=== PATIENT | male | born 1975 | race Two or more races ===

== ENCOUNTER 2024-07-09 00:26 | Emergency (ER) | payer MEDICAID, SELFPAY ==
[2024-07-09 00:28] VITALS: BMI 22.9
[2024-07-09 00:49] VITALS: BP 139/93; PULSE 86; RESP 18; TEMP 37.2; O2SAT 95
--- NOTE | 2024-07-09 01:30 | XR_ITS ---
Examination: PA chest single view Technique: Upright PA chest single view Exam date and time: July 12, 2024 at 0136 hrs. Indications: Coughing beginning one month ago. Findings: Normal heart size. Lungs are clear. The osseous structures are intact Impression: No active disease
[2024-07-09 03:10] LABS: Alanine Aminotransferase 68 U/L (10-49); Albumin, Serum 4.6 gm/dL (3.5-5.0); Albumin/Globulin Ratio 1.6 (1.2-2.2); Alkaline Phosphatase 127 U/L (46-116); Anion Gap 9 (7-16); Aspartate Amino Transferase 26 U/L (0-34); BUN/Creatinine Ratio 17 Ratio (12-20); Bilirubin,Total 0.5 mg/dL (0.3-1.2); Blood Urea Nitrogen 15 mg/dL (9-23); Calcium 9.3 mg/dL (8.3-10.6); Calcium (Corrected) 9.3 mg/dL (8.5-10.1); Carbon Dioxide 28.4 mMol/L (20.0-31.0); Chloride 106 mMol/L (98-107); Creatinine (Component) 0.9 mg/dL (0.6-1.3); Globulin 2.8 gm/dL (2.3-3.5); Glucose 103 mg/dL (74-106); Osmolality,Calculated 285 (275-295); Potassium 4.1 mMol/L (3.4-5.1); Procalcitonin 0.07 ng/ml (0.0-0.49); Sodium 143 mMol/L (136-145); Total Protein 7.4 gm/dL (5.7-8.2); Troponin I < 0.002 ng/mL (0.0-0.045); eGFR > 60 See Note
[2024-07-09 03:18] LABS: Basophils # (Auto) 0.1 Thou/mm3 (0.0-0.2); Basophils % (Auto) 0 % (0-2.5); Eosinophils # (Auto) 0.2 Thou/mm3 (0.0-0.5); Eosinophils % (Auto) 1 % (0-10); Hematocrit 48.1 % (41.0-53.0); Immature Granulocytes % (Auto) 1 % (0-0); Immature Granulocytes Auto 0.12 Thou/mm3 (0.00-0.00); Lymphocytes # (Auto) 2.5 Thou/mm3 (1.0-4.8); Lymphocytes % (Auto) 20 % (10-50); Mean Corpuscular HGB Conc 33.3 g/dl (31.0-37.0); Mean Corpuscular Hemoglobin 26.6 pg (25.0-35.0); Mean Corpuscular Volume 80 fL (80-100); Monocytes % (Auto) 8 % (0-12); Neutrophils # (Auto) 8.8 Thou/mm3 (1.8-7.7); Neutrophils % (Auto) 70 % (37-80); Nucleated Red Blood Cell % 0 /100 WBC (0); Platelet Count 290 Thou/mm3 (140-440); RDW Standard Deviation 41.7 fL (35.1-43.9); Red Blood Count 6.01 Miln/mm3 (4.50-5.90); White Blood Count 12.7 Thou/mm3 (3.8-10.6)
[2024-07-09 04:06] LABS: D-Dimer < 250 ng/mL (<600)
[2024-07-09] MEDS: NAPROXEN 250 MG TABLET 500 MG PO (04:37)
--- NOTE | 2024-07-09 04:45 | EDNOTE_ITS ---
Upper Respiratory Inf. RME/HPI General Chief Complaint: Flu Like Symptoms Stated Complaint: COUGH Time Seen by Provider: 07/09/24 01:29 Arrival date/time: 07/09/24 00:26 49M with no significant PMH presents to ED with 1 month of cough w/o improvement from steroids and course of Augmentin. Symptoms got worse several days ago and patient also had some back pain when coughing and fevers/chills. Limitations: no limitations Review of Systems Review of Systems Systems Reviewed: All systems reviewed, normal except as documented Constitutional Constitutional: Reports system reviewed and no additional complaints, except as documented, Denies fever(s) and Denies headache(s) ENT Ears, Nose, Mouth, and Throat: Denies disequilibrium and Denies headache(s) Cardiovascular Cardiovascular: Reports system reviewed and no additional complaints, except as documented, Denies chest pain and Denies dyspnea Respiratory Respiratory: Reports system reviewed and no additional complaints, except as documented, Reports as per HPI, Reports cough and Denies dyspnea Gastrointestinal Gastrointestinal: Reports system reviewed and no additional complaints, except as documented, Denies abdominal pain, Denies nausea and Denies vomiting Musculoskeletal Musculoskeletal: Reports as per HPI and Reports back pain Neurologic Neurologic: Reports system reviewed and no additional complaints, except as documented, Denies confusion, Denies disequilibrium and Denies headache(s) Psychiatric Psychiatric: Denies confusion Past Medical History Social History SMOKING STATUS: Never smoker ED Exam General Limitations: Present no limitations General appearance: Present alert and in no apparent distress Head Head exam: Present atraumatic Eye Eye exam: Present normal appearance, PERRL and EOMI ENT ENT exam: Present normal exam, normal oropharynx and mucous membranes moist Neck Neck exam: Present normal inspection, full ROM and trachea midline Chest Chest inspection: Present normal inspection and symmetric chest wall rise Respiratory Respiratory exam: Present normal lung sounds bilaterally Cardiovascular Cardiovascular exam: Present regular rate, normal rhythm and normal heart sounds Abdominal Exam Abdominal exam: Present soft and normal bowel sounds Extremities Exam Extremities exam: Present normal inspection and full ROM Back Exam Back exam: Present normal inspection and full ROM Neurological Exam Neurological exam: Present alert, oriented X3 and CN II-XII intact Psychiatric Psychiatric exam: Present normal affect and normal mood Skin Skin exam: Present warm, dry, intact and normal color Course Quality Measures none Orders Category Date Time Status Bedside Influenza A&B Antigen Test NOW Care 07/09/24 01:31 Active XR chest 1V portable Stat Exams 07/09/24 01:30 Taken CBC Stat Lab 07/09/24 01:58 Completed CMP [Comprehensive Metabolic Panel] Stat Lab 07/09/24 01:58 Completed Cocci Serology IgM with reflex to IgG [Cocci Serology, Lab 07/09/24 01:58 Received Unk History] Stat D-Dimer Stat Lab 07/09/24 01:58 Completed Procalcitonin Stat Lab 07/09/24 01:58 Completed Troponin I Stat Lab 07/09/24 01:58 Completed Naproxen [Naprosyn] Med 07/09/24 04:29 Discontinued 500 mg PO X1 ONE Vital Signs Vital signs: Vital Signs Temperature 99.0 F 07/09/24 00:49 Pulse Rate 86 07/09/24 00:49 Respiratory Rate 18 07/09/24 00:49 Blood Pressure 139/93 H 07/09/24 00:49 Pulse Oximetry (%) 95 07/09/24 00:49 Oxygen Delivery Method Room Air 07/09/24 00:49 O2 at 95% on RA and WNLs Upper Respiratory Infection MDM Narrative MDM Narrative:: 49M with no significant PMH presents to ED with 1 month of cough w/o improvement from steroids and course of Augmentin. Symptoms got worse several days ago and patient also had some back pain when coughing and fevers/chills. Physical exam reveals clear ENT and lungs. Patient is afebrile, calm, and alert. Wet CXR no PNA pending official report. Cocci pending at time of DC. Minimal leukocytosis. Procal normal. Trop and D-dimer normal. Flu A/B+. Patient data External records reviewed:: None Clinical information provided by:: patient Social determinants that could affect healthcare access:: none Patient has the following chronic illnesses:: none How is presenting disease/condition affected by chronic disease/condition?: no chronic disease Evaluation data The following diagnostics were reviewed and interpreted by me:: lab results and radiology exam(s) Lab and/or radiology exams considered but not ordered:: ordered Interpretation Summary: above Medications / Prescriptions Medications or Prescriptions considered but not ordered:: ordered Medication administrations:: Medication Administration History Discontinued Medications Naproxen (Naproxen 250 Mg Tablet) 500 mg PO X1 ONE Stop: 07/09/24 04:30 Last Admin: 07/09/24 04:37 Dose: 500 mg Documented By: MAJOR above Consultations Consultation(s) initiated? (list below): No Diagnosis Upper Respiratory Differential Diagnosis: upper respiratory infection, croup, otitis media, sinusitis, viral infection, bronchitis, influenza, pharyngitis and other (CAP, ACS, PE) Most likely diagnosis given after review of the tests above:: Flu A/B Admission Indicated Admission indicated?: not indicated Admission Request Was there a request for admission?: No Disposition Plan Disposition Plan: Discharge Discharge Attestation Discharge Attestation: The patient and all family members were given an opportunity to ask questions and understood the discharge instructions. Discharge instructions specifically effects, indications for sooner follow up or return to the emergency department, and the expected course of current diagnosis. Patient condition: Stable Discharge Plan Plan Patient Disposition: HOME (Self Care) Disposition Comment: Stable Problem List Clinical Impression: Influenza A, Influenza B Patient/Caregiver Discharge Instructions Education Materials: ED Influenza (Adult) Additional Instructions: Please follow-up with PCP within 24-48 hours and return immediately if symptoms worsen. Ibuprofen/Tylenol can be used simultaneously for greater fever/pain control. Benadryl is good for cough, congestion, and sleep. Print Language: Greek Stand Alone Forms: Patient Portal Info Letter PA/TIME STUDY CLERK Supervising Physician SARA/JACKY Supervising Physician: Dr. Aguero
[2024-07-09 15:13] LABS: Cocci Serology, IgM Negative (Negative)
[2024-07-11 15:12] LABS: Cocci Serology, IgG Negative (Negative)
== END 2024-07-09 05:54 | disposition home or self-care (01) ==
LOC: SERX 05:30
PROVIDERS: Physician Assistant; Emergency Provider Emergency Medicine; PCP Physician Assistant
DX: J10.1 Influenza due to other identified influenza virus with other respiratory manifestations (principal)
CPT/HCPCS: 36415; 71045; 80053; 84145; 84484; 85025; 85379; 86331; 86635; 99283; A9270